=== PATIENT | female | born 1980 | race African-American/Black ===

== ENCOUNTER → 2017-06-17 | Outpatient (CLI) | payer OTHER | LOC: HPND 12:30 | PROVIDERS: ATTEND Obstetrics & Gynecology | DX: O09.522 Supervision of elderly multigravida, second trimester (principal); O99.282 Endocrine, nutritional and metabolic diseases complicating pregnancy, second trimester | CPT/HCPCS: 76811 ==

== ENCOUNTER → 2017-09-29 | Outpatient (CLI) | payer OTHER | LOC: HPND 13:03 | PROVIDERS: ATTEND Obstetrics & Gynecology | DX: O09.523 Supervision of elderly multigravida, third trimester (principal); O35.8XX0 Maternal care for other (suspected) fetal abnormality and damage, not applicable or unspecified; O41.03X0 Oligohydramnios, third trimester, not applicable or unspecified | CPT/HCPCS: 76816; 76819 ==